=== PATIENT | female | born 1955 | race Caucasian/White ===

== ENCOUNTER → 2017-05-03 | Outpatient (CLI) | payer OTHER ==
[~2017-05-03] MED LIST: IOPAMIDOL (ISOVUE 370) 100 ML BTL IV ONE; NITROGLYCERIN 0.4 MG BTL SL ONE
== END ==
LOC: FIMAGING 10:22
PROVIDERS: ATTEND Internal Medicine Interventional Cardiology
DX: R07.9 Chest pain, unspecified (principal); R94.31 Abnormal electrocardiogram [ECG] [EKG]; R01.1 Cardiac murmur, unspecified
CPT/HCPCS: Q9967

== ENCOUNTER → 2017-07-02 | Outpatient (CLI) | payer OTHER | LOC: CIMAGING 09:35 | PROVIDERS: ATTEND Family Medicine | DX: M19.012 Primary osteoarthritis, left shoulder (principal) | CPT/HCPCS: 73060-PO ==

== ENCOUNTER → 2017-07-10 | Outpatient (CLI) | payer OTHER | LOC: CIMAGING 10:46 | PROVIDERS: ATTEND Family Medicine | DX: M79.602 Pain in left arm (principal) | CPT/HCPCS: 73090-PO ==

== ENCOUNTER → 2017-08-31 | Outpatient (CLI) | payer OTHER | LOC: CIMAGING 12:07 | PROVIDERS: ATTEND Physical Medicine & Rehabilitation Neuromuscular Medicine | DX: M50.321 Other cervical disc degeneration at C4-C5 level (principal); M50.322 Other cervical disc degeneration at C5-C6 level | CPT/HCPCS: 72050-PO ==

== ENCOUNTER 2017-09-19 10:02 | Inpatient (IN) | payer OTHER ==
--- NOTE | 2017-09-19 06:36 | PDHPUP ---
History & Physical Update H&P update statement: This history and physical update is based on an assessment of the patient which was completed after admission or registration (within 24 hours), but prior to the surgery/procedure. H&P update: H&P reviewed & patient examined, no change in patient's condition since H&P completed
[2017-09-19] MEDS ORDERED: ACETAMINOPHEN 500 MG TAB PO ONE (10:18)
[2017-09-19] MEDS ORDERED: GABAPENTIN 300 MG CAP PO ONE (10:18)
[2017-09-19] MEDS ORDERED: ceFAZolin 2 GM/SWFI 2 GM/20 ML SYR IVP ONE (10:18)
[2017-09-19] MEDS ORDERED: LR 1,000 ML IV ONE (10:20)
[2017-09-19] MEDS ORDERED: LIDOCAINE 1% 2 ML INJ ID PRN (10:20)
[2017-09-19] MEDS ORDERED: CHLORHEXIDINE GLUC HIBICLENS 118 ML BTL TP ONE (11:52)
[2017-09-19] MEDS ORDERED: BUPIVACAINE 0.25% 30 ML SDV ONE (11:52)
[2017-09-19] MEDS ORDERED: THROMBIN (BOVINE) 5,000 UNIT VIAL TP ONE (11:52)
[2017-09-19] MEDS ORDERED: BACITRACIN 50,000 UNITS/10 ML SYR IRR ONE (11:53)
--- NOTE | 2017-09-19 12:43 | PDANEPAE ---
ANE History of Present Illness cervical stenosis ANE Past Medical History - Cardiovascular History Hx Hypertension: No Hx Arrhythmias: No Hx Chest Pain: Yes Hx Coronary Artery / Peripheral Vascular Disease: No Hx CHF / Valvular Disease: No Hx Palpitations: No Cardiovascular History Comment: UNK CHEST PAIN - CARDIAC CATH 04/2017 - NORMAL RESULTS. HEART MURMUR - MILD - Pulmonary History Hx COPD: No Hx Asthma/Reactive Airway Disease: No Hx Recent Upper Respiratory Infection: No Hx Oxygen in Use at Home: No Hx Sleep Apnea: No Sleep Apnea Screening Result - Last Documented: Negative - Neurologic History Hx Cerebrovascular Accident: No Hx Seizures: No Hx Dementia: No - Endocrine History Hx Diabetes: No - Renal History Hx Renal Disorders: No Renal History Comment: OCCAS BLADDER LEAKAGE RECENTLY - Liver History Hx Hepatic Disorders: No - Neurological & Psychiatric Hx Hx Neurological and Psychiatric Disorders: No - Cancer History Hx Cancer: No - Congenital Disorder History Hx Congenital Disorders: No - GI History Hx Gastrointestinal Disorders: No - Other Health History Other Health History: NEG - Chronic Pain History Chronic Pain: Yes (NECK PAIN MILD W/TINGLING & NUMBNESS) - Surgical History Prior Surgeries: C SECTION X3. LAP BAND SURGERY. COLONOSCOPY ANE Review of Systems Review of Systems: - Exercise capacity METS (RN): 4 METS ANE Patient History - Allergies Allergies/Adverse Reactions: No Known Allergies Allergy (Unverified 09/13/17 11:36) - Home Medications Home Medications: Gabapentin 09/13/17 [Last Taken 09/17/17] Herbals/Supplements -Info Only 09/13/17 [Last Taken 09/05/17] Hydrocodone-Acetamin 5-325 mg 09/13/17 [Last Taken 09/17/17] Prozac 10 MG (*) 09/13/17 [Last Taken 09/19/17 06:00] Tylenol Extra Strength 09/13/17 [Last Taken 09/12/17] - NPO status NPO Since - Liquids (Date): 09/18/17 NPO Since - Liquids (Time): 22:00 NPO Since - Solids (Date): 09/18/17 NPO Since - Solids (Time): 19:00 - Smoking Hx Smoking Status: Never smoked - Family Anes Hx Family Hx Anesthesia Complications: NEG ANE Labs/Vital Signs - Vital Signs Blood Pressure: 130/67 Heart Rate: 62 Respiratory Rate: 16 O2 Sat (%): 96 Height: 157.48 cm Weight: 88.451 kg ANE Physical Exam - Airway Neck exam: decreased ROM Mallampati Score: Class 2 Mouth exam: normal dental/mouth exam - Pulmonary Pulmonary: no respiratory distress - Cardiovascular Cardiovascular: no murmur, rub, or gallop - ASA Status ASA Status: III ANE Anesthesia Plan Anesthesia Plan: general endotracheal anesthesia
[2017-09-19] MEDS ORDERED: MIDAZOLAM 2 MG/2 ML VIAL IVP ONE (12:45)
[2017-09-19] MEDS ORDERED: DEXAMETHASONE 4 MG/ML VIAL ONE (12:51)
[2017-09-19] MEDS ORDERED: ROCURONIUM 50 MG/5 ML VIAL ONE (12:51)
[2017-09-19] MEDS ORDERED: ONDANSETRON 4 MG/2 ML VIAL ONE ×2 (12:51→18:02)
[2017-09-19] MEDS ORDERED: HYDROmorphONE/DILAUDID 2 MG/ML INJ ONE (12:52)
[2017-09-19] MEDS ORDERED: PROPOFOL 200 MG/20 ML VIAL ONE (12:52)
[2017-09-19] MEDS ORDERED: fentaNYL 100 MCG/2 ML INJ ONE ×2 (12:52)
[2017-09-19] MEDS ORDERED: BISACODYL 10 MG SUPP PR PRN (13:20)
[2017-09-19] MEDS ORDERED: morphINE PCA 30 MG/30 ML PCA IV PRN (13:20)
[2017-09-19] MEDS ORDERED: diphenhydrAMINE 25 MG CAP PO PRN (13:20)
[2017-09-19] MEDS ORDERED: NALOXONE HCL 0.4 MG/ML INJ IVP PRN ×2 (13:20→14:34)
[2017-09-19] MEDS ORDERED: HYDROmorphone HCL/NS 0.5 MG/ML SYR IVP PRN (13:20)
[2017-09-19] MEDS ORDERED: LACTULOSE 20 GM/30 ML UDCUP PO PRN (13:20)
[2017-09-19] MEDS ORDERED: MAGNESIUM HYDROXIDE 30 ML UDCUP PO PRN (13:20)
[2017-09-19] MEDS ORDERED: NS W/ 20 KCl/L 1,000 ML IV SCH (13:30)
[2017-09-19] MEDS ORDERED: ceFAZolin 2 GM/DEXTROSE 100 ML IV SCH (14:00)
[2017-09-19] MEDS ORDERED: GLYCOPYRROLATE 0.2 MG/1 ML VIAL ONE (14:29)
[2017-09-19] MEDS ORDERED: DEXAMETHASONE 4 MG/ML VIAL IVP PRN (14:34)
[2017-09-19] MEDS ORDERED: oxyCODONE IR 5 MG TAB PO PRN (14:34)
[2017-09-19] MEDS ORDERED: PROMETHAZINE HCL 25 MG/ML INJ IVP PRN (14:34)
--- NOTE | 2017-09-19 17:02 | POSTANESTH ---
Post Anesthetic Evaluation Cardiovascular Status: Normal, Stable Respiratory Status: Normal, Stable Level of Consciousness/Mental Status: Can Participate in Eval Pain Control: Adequate, Prn Tx Ordered Nausea/Vomiting Control: Adequate, Prn Tx Ordered Complications Possibly Related to Anesthesia: None Noted
--- NOTE | 2017-09-19 17:23 | SOAPPROG ---
SOAP Progress Note Assessment/Plan: Post Op Visit: S: Awake and alert. Pt with expected posterior neck pain O: AFVSS/PERRLA/EOMI no droop CN 2-12 grossly intact +lt touch 5/5 BUE/BLE = CDI neck soft and supple A/P: 62 yo male that is s/p ACDF C4-C6 -orders in place -call with any questions or concerns -pt seen by Dr Leon -heaven as directed 09/19/17 17:19 Objective: Vital Signs Temp Pulse Resp BP Pulse Ox 36.9 C 62 16 130/67 H 96 09/19/17 11:04 09/19/17 12:44 09/19/17 12:44 09/19/17 12:44 09/19/17 12:44 ICD10 Worksheet Patient Problems: Problems Problem Status Onset Arthrodesis status Acute Cervical radiculitis Acute Cervical spinal stenosis Acute - ICD10 Problem Qualifiers (1) Cervical spinal stenosis (2) Cervical radiculitis (3) Arthrodesis status
[2017-09-19] MEDS ORDERED: oxyCODONE IR 5 MG TAB ONE ×2 (17:30→17:33)
[2017-09-19] MEDS ORDERED: ACETAMINOPHEN 325 MG TAB ONE (17:39)
[2017-09-19] MEDS: ACETAMINOPHEN 325 MG TAB PO PRN (17:39)
[2017-09-19] MEDS: ONDANSETRON 4 MG/2 ML VIAL IVP PRN (18:03)
--- NOTE | 2017-09-19 21:14 | GOP ---
[f rep st] OPERATIVE REPORT DATE OF OPERATION: 09/19/2017 SURGEON: Babs Leon MD TOUR MANAGER: Fei Schultz PA-C. PREOPERATIVE DIAGNOSIS: Cervical spondylosis with severe left cervical radiculopathy predominantly i n the C6-C7 distribution. POSTOPERATIVE DIAGNOSIS: Cervical spondylosis with severe left cervical radiculopathy predominantly in the C6-C7 distribution. PROCEDURE PERFORMED: 1. Anterior cervical diskectomy with arthrodesis and decompression C5-6, C6-7, same incision bone gr aft harvest (96889, [id number], [id number]). 2. Placement of anterior cervical plate C4, C5, C6 (86033). 3. Placement of biomechanical intervertebral device C4-5, C5-6 (18408 x2). 4. Microscope. FINDINGS: ESTIMATED BLOOD LOSS: 50 cc. INDICATIONS: The patient is a 62-year-old with terrible left cervical radiculopathy and slight wrist extensor weakness and an EMG that showed a C7 radiculopathy rather than a C6. There was really no e vidence of compression at C6-7, but she did have evidence of severe left-sided foraminal compromise a t C4-5, C5-6, and disk protrusion. I felt that C5-6 was likely the culprit with combination of bone and disk protrusion. I suggested 2-level cervical fusion. We did discuss cervical disk arthroplasty . I thought she was a better candidate for fusion, but both were discussed. We even discussed a 2nd opinion from my partners if she wanted to pursue that. The risk of esophageal injury, carotid injur y, recurrent laryngeal nerve injury, hoarseness, dysphagia, nerve injury in the neck, major vascular injury neck, pseudoarthrosis, adjacent segment disease, and the possible need for future spine surger y as well as the possibility that surgery would fail to eliminate any of her pain was discussed. She understood these risks. She wanted to proceed. DESCRIPTION OF PROCEDURE: The patient was taken to the operating room, placed in supine position and general anesthesia was begun. A midline shoulder roll was placed. Care was taken to pad all points of contact. Her arms were tucked at her side. She was sterilely prepped and draped in the usual fa shion. We made a transverse incision on the right side of the neck. The dissection was straightforw agatha. We dissected down through the platysma with Bovie cautery and we then used Metzenbaum scissors to dissect down to the prevertebral space. A nice exposure was obtained. We shot a localizing x-ray, dissected the longus coli muscles off the spine, placed distraction pin a t C4-5, distracted at that level, introduced the operating microscope and removed the disk and the ca rtilaginous endplates completely. We drilled and harvested subchondral bone for autologous grafting purposes, incised the space and chose a 7 mm implant at C4-5. We then opened the posterior longitudinal ligament, decompressed the thecal sac and there was a large bony osteophyte and disk protrusion in the spinal canal on the patient's left-hand side. Actually a lot of it was uncinate process hypertrophy and we removed all this bone protruding into the canal an d the nerve root entry zone for the C5 root and a nice decompression was obtained. We decompressed out to the mid-pedicle of C5 and had good visualization of the C5 root. We then pack ed the cage with bone autograft inserted at C4-5 and shot an x-ray. I then moved the distraction pin s, went to C5-6 where we distracted and then removed the disk and the cartilaginous endplates complet oumou. We drilled and harvested a large amount of subchondral bone at this location. It was a more de generative disk here. We then chose a 6 mm PEEK intervertebral device, packed with bone autograft an d fashioned to fit in the space. We then opened the posterior longitudinal ligament and on the left-hand side there was very severe en croachment into the spinal canal due to a bony osteophyte protrusion as well as a soft disk, but ther e was actually a fair amount of calcified bone in the canal. A lot of this bone actually was lying i nferior to the C5-6 disk, consistent with what we see on the MRI and probably consistent with the EMG findings, compressing more of the motor fibers of the C7 root below. The C6 root in its nerve root entry zone was also compressed, but much of the compression also existed down adjacent to the pedicle of C6. This was all removed and we got a great decompression all the way out into the neural forame n above the pedicle of C6. We took the cage, fashioned it for the space, fitted at C5-6, and shot x-rays. I was happy with the position of the devices. We did take the C4-5 cage a little deeper. I then shaped the ventral surfa ce of the vertebral body, chose a 37 mm plate, placed a single screw at C4, a single screw at C6 and the bone quality was excellent. There was very strong bony purchase of the screws in the bone. I sh ot an x-ray, confirming the position of those screws and then placed the remaining 4 screws in and we then locked them according to company specification and we then verified this with the people in the room that the plate and screws had been locked. We achieved meticulous hemostasis and closed the incision in multiple layers using Vicryl sutures. S clark-Strips were applied to the skin and the patient was reversed from anesthesia, extubated, and tra nsferred to recovery room in stable condition. There were no complications. COMPLICATIONS: None. INSTRUMENTATION USED: Fonalitytronic 37 mm Zevo plate. We used 3.5 x 15 mm screws. We used a 7 x 16 x 1 4 mm anatomic PTC cage at C4-5 and a 6 x 16 x 14 mm anatomic PTC cage at C5-6. COMPLICATIONS: None. /[id number]/MODL
[2017-09-19] MEDS: ceFAZolin 2 GM/SWFI 2 GM/20 ML SYR IVP SCH (21:17)
[2017-09-19] MEDS: oxyCODONE IR 5 MG TAB PO PRN (21:32)
[2017-09-19] MEDS: ONDANSETRON DISINTEGRATING 4 MG TAB PO PRN (21:33)
[2017-09-19] MEDS: METHOCARBAMOL 750 MG TAB PO PRN (21:33)
[2017-09-19] MEDS: FAMOTIDINE 20 MG TAB PO SCH (23:04)
[2017-09-19] MEDS: SENNOSIDES/DOCUSATE SODIUM TAB PO SCH (23:05)
[2017-09-20] MEDS: oxyCODONE IR 5 MG TAB PO PRN ×3 (01:46→19:21)
[2017-09-20 02:38] LABS: PLATELET COUNT 249 10^3/uL (150-400)
[2017-09-20] MEDS: ONDANSETRON 4 MG/2 ML VIAL IVP PRN ×2 (04:25→19:29)
[2017-09-20] MEDS: METHOCARBAMOL 750 MG TAB PO PRN ×4 (04:27→19:23)
[2017-09-20] MEDS: ACETAMINOPHEN 325 MG TAB PO PRN (04:27)
[2017-09-20] MEDS: ceFAZolin 2 GM/SWFI 2 GM/20 ML SYR IVP SCH ×2 (04:31→12:06)
[2017-09-20] MEDS: FAMOTIDINE 20 MG TAB PO SCH ×2 (07:51→21:17)
[2017-09-20] MEDS: SENNOSIDES/DOCUSATE SODIUM TAB PO SCH ×2 (07:52→21:17)
[2017-09-20] MEDS: POLYETHYLENE GLYCOL 3350 17 GM PKT PO PRN (07:53)
[2017-09-20] MEDS ORDERED: GABAPENTIN 300 MG CAP PO PRN (08:03)
--- NOTE | 2017-09-20 08:07 | NEUSURGPN ---
Date of Surgery: 09/19/17 Post Op Day: 1 Assessment/Plan: Assessment: 62 yo male that is s/p ACDF C4-C6 POD #1 Plan: -s/p ACDF C4-C6: pt with some expected neck pain, arm pain is better, still with some residual but improved tingling in hand -PT/OT/ST ordered -post op xrays pending -orders in place -call with any questions or concerns -pt seen by Dr Leon -collar as directed -call with any questions or concerns Subjective: Awake and alert. NAD. Eating/drinking and voiding. No f/c/n/v/d. Objective: AFVSS/PERRLA/EOMI no droop CN 2-12 grossly intact +lt touch 5/5 BUE/BLE = CDI neck soft and supple Neuro Check Frequency: per routine Urinary Catheter in Place: No - Physician Discussed Patient with : Edward Patient Seen by : Edward Neurosurgery Physical Exam - Vitals, I&O, Labs I and O 09/19/17 09/20/17 09/21/17 05:59 05:59 05:59 Intake Total 2000 1000 Output Total 425 Balance 1575 1000 Weight 88.451 kg Intake: Oral (ml) 150 IV Intake (ml) 1850 IV Infused (ml) 1000 NS W/ 20 KCl/L 1,000 ml @ 1000 75 mls/hr IV CONT OSWALDO Rx #:[id number] Output: Urine (ml) 325 Catheter 325 Estimated Blood Loss (ml) 100 Other: Number of Emesis 1 Occurrences Vital Signs Temp Pulse Resp BP Pulse Ox 36.7 C 82 16 104/67 98 09/20/17 07:48 09/20/17 07:48 09/20/17 07:48 09/20/17 07:48 09/20/17 07:48 Laboratory Results 09/20/17 02:20 09/20/17 02:20 ICD10 Worksheet Patient Problems: Problems Problem Status Onset Arthrodesis status Acute Cervical radiculitis Acute Cervical spinal stenosis Acute - ICD10 Problem Qualifiers (1) Cervical spinal stenosis (2) Cervical radiculitis (3) Arthrodesis status
[2017-09-20] MEDS: FLUoxetine 20 MG CAP PO SCH (08:21)
--- NOTE | 2017-09-20 09:02 | PDMN ---
Medical Necessity Medical necessity: Patient meets inpatient criteria per PA note and [facility] [place] [facility] Cervical Fusion, Anterior (requiring extended postop care for ongoing pain issues/receiving IV Morphine for pain management and additional inpatient PT/OT ; LOS will be > 2 midnights.)
--- NOTE | 2017-09-20 11:25 | ASMTCMCOM ---
CM Note CM Note Notes: Pt s/p ACDF C4-C6. OT rec home, PT/[employer] evals pending. Pt resides with . CM to follow for d/c needs. Date Signed: 09/20/2017 11:25 AM Electronically Signed By:ALMA ROSA Barnes
[2017-09-20] MEDS: ACETAMINOPHEN 500 MG TAB PO PRN ×2 (12:05→16:08)
[2017-09-20] MEDS: HYDROCODONE/APAP 5/325 TAB PO PRN (21:16)
[2017-09-21] MEDS: oxyCODONE IR 5 MG TAB PO PRN ×4 (01:04→15:30)
[2017-09-21] MEDS: METHOCARBAMOL 750 MG TAB PO PRN ×4 (04:03→15:30)
[2017-09-21] MEDS: ONDANSETRON DISINTEGRATING 4 MG TAB PO PRN ×2 (07:58→15:29)
[2017-09-21] MEDS: POLYETHYLENE GLYCOL 3350 17 GM PKT PO PRN (07:59)
[2017-09-21] MEDS: SENNOSIDES/DOCUSATE SODIUM TAB PO SCH (07:59)
[2017-09-21] MEDS: ACETAMINOPHEN 500 MG TAB PO PRN (08:00)
[2017-09-21] MEDS: FLUoxetine 20 MG CAP PO SCH (08:00)
[2017-09-21] MEDS: FAMOTIDINE 20 MG TAB PO SCH (08:00)
[2017-09-21] MEDS: HYDROCODONE/APAP 5/325 TAB PO PRN (08:00)
[2017-09-21 08:33] VITALS: BP 121/77
--- NOTE | 2017-09-21 08:40 | NEUSURGPN ---
Assessment/Plan: Assessment: 62 yo male that is s/p ACDF C4-C6 POD #2 Plan: -s/p ACDF C4-C6: pt with some expected neck pain, -Pain mgmt - continue current meds -PT/OT/ST ordered -post op xrays show stable hardware -orders in place -call with any questions or concerns -Dispo: possible dc home later today pending clinical course -pt D/w Dr Leon Subjective: Pt resting in bedside chair, c/o anterior and posterior neck pain. States it has been a while since she had any pain meds Objective: AAOx3 NAD VSS MAEx4 Motor 5/5 BUE C collar on Dressing cdi +LT Urinary Catheter in Place: No - Physician Discussed Patient with : Edward Neurosurgery Physical Exam - Vitals, I&O, Labs I and O 09/20/17 09/21/17 09/22/17 05:59 05:59 05:59 Intake Total 2000 2200 100 Output Total 425 600 Balance 1575 1600 100 Weight 88.451 kg Intake: Oral (ml) 150 1200 100 IV Intake (ml) 1850 IV Infused (ml) 1000 NS W/ 20 KCl/L 1,000 ml @ 1000 75 mls/hr IV CONT OSWALDO Rx #:[id number] Output: Urine (ml) 325 600 Catheter 325 Toilet 600 Estimated Blood Loss (ml) 100 Other: Number of Voids Toilet 1 Number of Emesis 1 Occurrences Vital Signs Temp Pulse Resp BP Pulse Ox 36.9 C 80 15 121/77 H 90 L 09/21/17 08:00 09/21/17 08:00 09/21/17 08:00 09/21/17 08:00 09/21/17 08:00 Laboratory Results 09/20/17 02:20 09/20/17 02:20 ICD10 Worksheet Patient Problems: Problems Problem Status Onset Arthrodesis status Acute Cervical radiculitis Acute Cervical spinal stenosis Acute
--- NOTE | 2017-09-21 13:27 | PDHOMEO2F ---
Home Oxygen Face to Face Home Orders: I certify that a physician or a nurse practitioner or physician's photo studio assistant has had a [id number] encounter with this patient on the date of this order due to the diagnosis listed, which relates to the primary reason the patient requires home oxygen. Alternative treatments have been tried, or considered, and deemed ineffective. It is anticipated that supplemental oxygen will result in improvement with treatment. Home oxygen qualifying diagnosis: post operative hypoxia SpO2 on room air (%): 84 Frequency of home oxygen needed: continuous Home oxygen liters per minute: 2 Home oxygen delivery device: nasal cannula Concentrator: Yes E-tanks for mobility and back up: No I certify that, based on these findings, the home oxygen is medically necessary for this patient for the following length of time. Length of time home oxygen needed: 1 month Home Oxygen Comment: Until cleared by PCP to DC O2
--- NOTE | 2017-09-21 15:11 | ASMTCMCOM ---
CM Note CM Note Notes: PT/OT/[facility] MOLD clear pt for home, no CM d/c needs identified. Date Signed: 09/21/2017 03:10 PM Electronically Signed By:ALMA ROSA Barnes
[2017-09-22] MEDS ORDERED: ENOXAPARIN 40 MG/0.4 ML SYR SC SCH (09:00)
== END 2017-09-21 16:15 | disposition home or self-care (01) | DRG 473 ==
LOC: OBSVTOIN 10:02 → F3N 10:02
PROVIDERS: ADMIT Neurological Surgery; ATTEND Neurological Surgery
PROC: 4A1004G Monitoring of Central Nervous Electrical Activity, Intraoperative, Open Approach (ICD-10-PCS; principal; 2017-09-19 13:30)
PROC: 00NW0ZZ Release Cervical Spinal Cord, Open Approach (ICD-10-PCS; principal; 2017-09-19 13:30)
PROC: 0RT30ZZ Resection of Cervical Vertebral Disc, Open Approach (ICD-10-PCS; principal; 2017-09-19 13:30)
PROC: 01N10ZZ Release Cervical Nerve, Open Approach (ICD-10-PCS; principal; 2017-09-19 13:30)
PROC: 0RG20A0 Fusion of 2 or more Cervical Vertebral Joints with Interbody Fusion Device, Anterior Approach, Anterior Column, Open Approach (ICD-10-PCS; principal; 2017-09-19 13:30)
DX: M47.22 Other spondylosis with radiculopathy, cervical region (principal)
CPT/HCPCS: 92526-GN; 92610-GN; 97116-GP; 97161-GP; 97165-GO; 97535-GO; C1713; J0171; J0690; J1100; J1170; J2250; J2270; J2405; J2704; J3010

== ENCOUNTER → 2017-11-14 | Outpatient (CLI) | payer OTHER | LOC: FIMAGING 09:02 | PROVIDERS: ATTEND Nurse Practitioner | DX: Z98.1 Arthrodesis status (principal) ==

== ENCOUNTER → 2018-02-07 | Outpatient (CLI) | payer OTHER | LOC: FIMAGING 09:51 | PROVIDERS: ATTEND Nurse Practitioner | DX: Z47.89 Encounter for other orthopedic aftercare (principal); Z98.1 Arthrodesis status ==

== ENCOUNTER → 2018-06-18 | Outpatient (CLI) | payer OTHER | LOC: FIMAGING 10:22 | PROVIDERS: ATTEND Neurological Surgery | DX: Z98.1 Arthrodesis status (principal) ==